=== PATIENT | female | born 1970 | race African-American/Black ===

== ENCOUNTER 2016-12-12 06:30 | Emergency (ER) | payer OTHER ==
[~2016-12-12 06:30] MED LIST: ASPIRIN81 M2 PO; CEFTIN500 MG PO; GLUCOPHAGE XR500 MG PO; GLUCOPHAGE500 M1 PO; HUMULIN N100 U/ML SUBQ; LEVEMIR100 UNITS/ SUBQ; LIPITOR20 MG PO; LISINOPRIL2.5 MG PO; NICOTINE TRANSD21 MG EXT; NO MEDICATIONS; PERCOCET 7.5-31 EACH PO; ZESTRIL5 MG PO; ZOFRAN PO
[2016-12-12 07:44] LABS: URINE SOURCE CLEAN CATCH
[2016-12-12 07:48] LABS: BASOPHIL# 0.1 X10e3 (0-0.3); BASOPHIL% 0.8 % (0-2.5); EOSINOPHIL# 0.1 X10e3 (0-0.7); EOSINOPHIL% 0.9 % (0.0-7.0); HEMATOCRIT 46.1 % (35.0-45.0); LYMPHOCYTE# 2.8 X10e3 (1.0-3.5); LYMPHOCYTE% 25.3 % (17.0-45.0); MEAN CELL VOLUME 90.5 FL (83-96); MEAN CORPUSCULAR HEMOGLOBIN 29.4 PG (28-34); MEAN CORPUSCULAR HGB CONC 32.4 g/dL (30-36); MONOCYTE# 0.6 X10e3 (0-1.0); NEUTROPHIL# 7.6 X10e3 (1.5-7.1); PLATELET COUNT 224 X10e3 (140-420); WHITE BLOOD COUNT 11.2 X10e3 (4.0-10.5)
[2016-12-12 07:51] LABS: DIFF IND NO
[2016-12-12 07:52] LABS: URINE APPEARANCE CLEAR; URINE BILIRUBIN NEG (NEG); URINE BLOOD NEG (NEG); URINE COLOR YELLOW; URINE GLUCOSE >1000 MG/DL (NEG); URINE KETONE NEG (NEG); URINE LEUKOCYTE ESTERASE NEG (NEG); URINE NITRATE NEG (NEG); URINE PROTEIN NEG (NEG); URINE SPECIFIC GRAVITY 1.036 (1.003-1.035); URINE UROBILINOGEN 0.2 MG/DL (NEG)
[2016-12-12 07:54] LABS: CULTURE INDICATED? NO
[2016-12-12 08:14] LABS: BUN/CREATININE RATIO 15.71; CALCIUM SERUM 9.3 mg/dL (8.4-10.2); CREATININE SERUM 0.7 mg/dL (0.6-1.4); GLOM FILT RATE Estimated 121.3 mL/min (>60); POTASSIUM 4.5 mmol/L (3.5-5.1)
== END 2016-12-12 11:55 | disposition home or self-care (01) ==
LOC: CED 06:30
PROVIDERS: Emergency Medicine
DX: T78.3XXA Angioneurotic edema, initial encounter (principal); R73.9 Hyperglycemia, unspecified; F17.200 Nicotine dependence, unspecified, uncomplicated; Z88.8 Allergy status to other drugs, medicaments and biological substances; Z79.899 Other long term (current) drug therapy
CPT/HCPCS: 36415; 80048; 81003; 82947; 84703; 85025; 96361; 96374; 99283

== ENCOUNTER 2017-01-07 09:42 | Emergency (ER) | payer OTHER | END 2017-01-07 12:11 | disposition home or self-care (01) | LOC: CED 09:42 | DX: L02.31 Cutaneous abscess of buttock (principal); E11.65 Type 2 diabetes mellitus with hyperglycemia; I10 Essential (primary) hypertension; F17.210 Nicotine dependence, cigarettes, uncomplicated; Z79.4 Long term (current) use of insulin; Z79.82 Long term (current) use of aspirin; Z79.899 Other long term (current) drug therapy | CPT/HCPCS: 10060; 82947; 99283 ==